=== PATIENT | male | born 1995 | race American Indian/Alaskan Native ===

== ENCOUNTER 2017-08-18 18:32 | Emergency (ER) | payer SELFPAY ==
[2017-08-18 19:00] VITALS: BP 165/99; PULSE 115; RESP 20; TEMP 98.4; O2SAT 98
--- NOTE | 2017-08-18 19:42 | C.PDOC ---
History Of Present Illness 21-year-old male, PMHx includes gynecomastia, presents to the emergency department with complaints of enlarged left breast x4 months. Patient denies any pain or nipple discharge, Time Seen by Provider: 08/18/17 19:25 Chief Complaint (Nursing): Breast Problem History Per: Patient History/Exam Limitations: no limitations Past Medical History Reviewed: Historical Data, Nursing Documentation, Vital Signs Vital Signs: Last Vital Signs Temp 98.4 F 08/18/17 18:49 Pulse 115 H 08/18/17 18:49 Resp 20 08/18/17 18:49 BP 165/99 H 08/18/17 19:27 Pulse Ox 98 08/18/17 21:41 Family History: States: No Known Family Hx - Social History Hx Alcohol Use: Yes Hx Substance Use: Yes - Immunization History Hx Tetanus Toxoid Vaccination: Yes Hx Influenza Vaccination: No Hx Pneumococcal Vaccination: No Review Of Systems Gastrointestinal: Negative for: Vomiting Musculoskeletal: Positive for: Other (left breast enlargement, mild.). Negative for: Back Pain Skin: Negative for: Rash Physical Exam - Physical Exam Appears: Non-toxic, No Acute Distress Skin: Normal Color, Warm, Dry, No Rash Head: Normacephalic Eye(s): bilateral: Normal Inspection, PERRL Chest: Other (moderately enlarged left breast, no skin changes. No palpable mass , no nipple discharge , Rt breast with mild enlargement. ) Cardiovascular: Rhythm Regular, No Murmur Respiratory: No Decreased Breath Sounds, No Accessory Muscle Use Neurological/Psych: Oriented x3, Normal Speech ED Course And Treatment O2 Sat by Pulse Oximetry: 98 (RA) Pulse Ox Interpretation: Normal Progress Note: Patient treated with Coreg. Will be discharged for outpatient f.u with PMD for further evaluation. All questions answered. Disposition Counseled Patient/Family Regarding: Diagnosis, Need For Followup - Disposition Disposition: HOME/ ROUTINE Disposition Time: 19:40 Condition: STABLE Additional Instructions: Please follow up with your doctor Return to ER if redness to area, pain or worse Instructions: When Men Develop Breasts (Gynecomastia) Forms: [facility] (Turkish) - Clinical Impression Clinical Impression: Gynecomastia, male - Scribe Statement The provider has reviewed the documentation as recorded by the Scribe (Benita Crane) All medical record entries made by the Scribe were at my direction and personally dictated by me. I have reviewed the chart and agree that the record accurately reflects my personal performance of the history, physical exam, medical decision making, and the department course for this patient. I have also personally directed, reviewed, and agree with the discharge instructions and disposition.
== END 2017-08-18 19:45 | disposition home or self-care (01) ==
LOC: C.ER 18:32
DX: N62 Hypertrophy of breast (principal)